=== PATIENT | female | born 1980 | race African-American/Black ===

== ENCOUNTER 2019-01-13 01:42 | Emergency (ER) | payer OTHER ==
[~2019-01-13] VITALS: Ht 167.6 cm; Wt 91.3 kg
[2019-01-13 01:46] VITALS: Ht 167.6 cm; Wt 91.3 kg
[2019-01-13] MEDS ORDERED: KETOROLAC 30 MG INJ IV STA (03:20)
[2019-01-13] MEDS ORDERED: MULTI PO (03:33)
[2019-01-13] MEDS ORDERED: TRAZ-111 PO (03:33)
[2019-01-13] MEDS ORDERED: LAMO25TA6 PO (03:33)
[2019-01-13] MEDS ORDERED: MELA1TAB PO (03:33)
[2019-01-13] MEDS ORDERED: CYAN100T PO (03:33)
--- NOTE | 2019-01-13 04:07 | ERD ---
ER Documentation Chief Complaint Chief Complaint PT C/O SWELLING/PAIN IN LOWER EXTRIMITY X 2 HOURS,CP RADIATES LEFT ARM HPI 38-year-old female with no significant past medical history complaining of bilateral lower extremity swelling on and off for the past week with intermittent chest pain that is pressure-like, radiating across the chest, with no alleviating or exacerbating factors. She also complains of right lower extremity pain behind her thigh. The swelling has been coming and going as well. She states that it started when she was sleeping in her car after having some issues with her family. She denies any recent surgeries, or history of blood clots. ROS All systems reviewed and are negative except as per history of present illness. Medications Home Meds Reported Medications Melatonin/Pyridoxine (Melatonin 5 mg Tablet) 1 Each Tablet, 1 EACH PO, TAB 01/13/19 Multivitamins* (Theragran*) 1 Tab Tab, 1 TAB PO DAILY, TAB 01/13/19 Cyanocobalamin* (Vitamin B12*) 100 Mcg Tab, 200 MCG PO DAILY, TAB 01/13/19 Trazodone Hcl* (Trazodone Hcl*) 50 Mg Tablet, 50 MG PO QHS, #30 TAB 01/13/19 Lamotrigine* (Lamictal* XR) 25 Mg Tab.er.24, 25 MG PO QHS, TAB 01/13/19 Allergies Allergies: Coded Allergies: amoxicillin (Unverified Allergy, Severe, HIVES, 01/13/19) oxycodone (Unverified Allergy, Severe, HIVES, 01/13/19) PMhx/Soc Medical and Surgical Hx: pt denies Medical Hx, pt denies Surgical Hx History of Surgery: No Anesthesia Reaction: No Hx Neurological Disorder: No Hx Respiratory Disorders: No Hx Cardiac Disorders: No Hx Psychiatric Problems: No Hx Miscellaneous Medical Probl: No Hx Alcohol Use: No Hx Substance Use: No Hx Tobacco Use: No Smoking Status: Never smoker FmHx Family History: No diabetes, No coronary disease Physical Exam Vitals Vital Signs Date Temp Pulse Resp B/P (MAP) Pulse Ox O2 O2 Flow FiO2 Time Delivery Rate 01/13/19 97.7 78 14 115/70 100 Room Air 04:16 (85) 01/13/19 97.7 76 19 135/81 98 Room Air 03:38 (99) 01/13/19 97.7 74 135/81 98 Room Air 03:01 (99) 01/13/19 97.7 93 135/81 98 01:46 (99) Physical Exam Const: No acute distress Head: Atraumatic Eyes: Normal Conjunctiva ENT: Normal External Ears, Nose and Mouth. Neck: Full range of motion. No meningismus. Resp: Clear to auscultation bilaterally Cardio: Regular rate and rhythm, no murmurs. 2+ distal pulses in all 4 extremities Abd: Soft, non tender, non distended. Normal bowel sounds Skin: No petechiae or rashes Back: No midline or flank tenderness Ext: No cyanosis, or edema Neur: Awake and alert Psych: Normal Mood and Affect Result Diagram: 01/13/1921401/13/19214 Results 24 hrs Laboratory Tests Test 01/13/19 02:15 01/13/19 03:38 White Blood Count 9.2 10^3/ul Red Blood Count 4.83 10^6/ul Hemoglobin 12.7 g/dl Hematocrit 40.3 % Mean Corpuscular Volume 83.4 fl Mean Corpuscular Hemoglobin 26.3 pg Mean Corpuscular Hemoglobin Concent 31.5 g/dl Red Cell Distribution Width 12.6 % Platelet Count 295 10^3/UL Mean Platelet Volume 10.0 fl Immature Granulocytes % 0.400 % Neutrophils % 64.7 % Lymphocytes % 23.0 % Monocytes % 10.3 % Eosinophils % 1.2 % Basophils % 0.4 % Nucleated Red Blood Cells % 0.0 /100WBC Immature Granulocytes # 0.040 10^3/ul Neutrophils # 6.0 10^3/ul Lymphocytes # 2.1 10^3/ul Monocytes # 1.0 10^3/ul Eosinophils # 0.1 10^3/ul Basophils # 0.0 10^3/ul Nucleated Red Blood Cells # 0.0 10^3/ul Sodium Level 139 mmol/L Potassium Level 3.9 mmol/L Chloride Level 105 mmol/L Carbon Dioxide Level 24 mmol/L Anion Gap 10 Blood Urea Nitrogen 12 mg/dl Creatinine 0.65 mg/dl Est Glomerular Filtrat Rate mL/min > 60 mL/min Glucose Level 155 mg/dl Calcium Level 9.3 mg/dl Troponin I < 0.012 ng/ml POC Beta HCG, Qualitative NEGATIVE Current Medications Medications Dose Sig/Matt Start Time Status Last (Trade) Ordered Route PRN Stop Time Admin Dose Reason Admin Ketorolac 30 mg ONCE STAT 01/13/19 DC 01/13/19 Tromethamine IV 03:20 04:08 (Toradol) 01/13/19 03:22 Procedures/MDM EMERGENT LABS AND DIAGNOSTIC STUDIES: Lab Results above were reviewed and interpreted by me. CBC: no anemia or evidence of infection BMP: No evidence of electrolyte abnormality, renal failure, hypoglycemia Troponin within normal limits, not indicative of cardiac ischemia 12-lead EKG was interpreted by Aimee Monsivais MD: Normal Sinus Rhythm Normal axis Normal intervals No acute ST or T wave changes suggestive of acute ischemia or STEMI. Radiology Results as interpreted by Radiology below were reviewed by SOlga medel MD: Venous ultrasound right lower extremity negative for DVT per logistics technician read. Final radiology read pending Chest X-ray 1V Interpreted by me: Soft Tissue: No acute abnormalities Bones: No acute abnormalities Mediastinum/Cardiac Silhouette/Lungs: No acute abnormalities Initial Nursing notes reviewed. Previous Medical Records requested via the Electronic Health Record. EMERGENCY DEPARTMENT COURSE / MEDICAL DECISION MAKING: The patient presents with chest pain. Vitals are stable. I considered pulmonary embolism, aortic dissection, pneumothorax among other diagnoses. Evaluation for acute coronary syndrome was performed. The HEART score was utilized for risk stratification and found to be 1. Since she has had her symptoms for several days, repeat EKG and troponin are not necessary. Based on this evaluation the patient's risk of major adverse cardiac events is <1%. I have a very low suspicion for pulmonary embolism. Shared decision making occurred with patient and the decision has been made to discharge the patient for outpatient evaluation. Patient instructed to arrange follow up with PCP in the next 2 days and return to the ED for any new or worsening symptoms. Patient's blood pressure was elevated (>120/80) but appears stable without evidence of hypertensive emergency or urgency. The patient was counseled about the risks of hypertension and urged to pursue outpatient monitoring and therapy within a week with their primary care physician. Departure Diagnosis: Primary Impression: Chest pain Chest pain type: unspecified Qualified Codes: R07.9 - Chest pain, unspecified Additional Impressions: Shortness of breath Leg pain, right Condition: Stable Patient Instructions: Coping with Shortness of Breath: Controlling Stress, Chest Pain, Uncertain Cause Referrals: [facility] YOU HAVE RECEIVED A MEDICAL SCREENING EXAM AND THE RESULTS INDICATE THAT YOU DO NOT HAVE A CONDITION THAT REQUIRES URGENT TREATMENT IN THE EMERGENCY DEPARTMENT. FURTHER EVALUATION AND TREATMENT OF YOUR CONDITION CAN WAIT UNTIL YOU ARE SEEN IN YOUR DOCTORS OFFICE WITHIN THE NEXT 1-2 DAYS. IT IS YOUR RESPONSIBILITY TO MAKE AN APPOINTMENT FOR FOLOW-UP CARE. IF YOU HAVE A PRIMARY DOCTOR --you should call your primary doctor and schedule an appointment IF YOU DO NOT HAVE A PRIMARY DOCTOR YOU CAN CALL OUR PHYSICIAN REFERRAL HOTLINE AT IF YOU CAN NOT AFFORD TO SEE A PHYSICIAN YOU CAN CHOSE FROM THE FOLLOWING [facility] [address] [facility] [facility] [address] [facility]. [facility] [address] [facility] [facility] [address] [facility] [place]. [facility] [address] [facility]. [facility]. [address] [place] Additional Instructions: Your workup today did not show any significant abnormalities. The cause of your symptoms is unclear at this time. I would like you to follow-up with your primary care doctor in the next 2-3 days. If any of your symptoms are to worsen, return to the ER immediately. PRAMOD MONSIVAIS MD Jan 13, 2019 04:07
[2019-01-13 05:15] VITALS: BP 121/82; PULSE 83; RESP 15
== END 2019-01-13 05:19 | disposition home or self-care (01) ==
LOC: E/R 01:42
DX: R07.9 Chest pain, unspecified (principal); R06.02 Shortness of breath; M79.604 Pain in right leg
CPT/HCPCS: 36415; 71045; 80048; 81025; 84484; 85025; 93971; 96374; 99285; J1885; 93005